=== PATIENT | female | born 1960 | race Caucasian/White ===

== ENCOUNTER 2017-02-26 21:04 | Emergency (ER) | payer BC ==
[~2017-02-26] VITALS: Ht 167.6 cm; Wt 99.8 kg
[~2017-02-26 21:04] MED LIST: ASPI-484 PO; CARV25TA PO; CLOP75TA52 PO; HYDR25TA9 PO; ISOS30TA21 PO; MELO7.5T31 PO; NIFE60TA2 PO; SIMV40TA PO; SPIR25TA3 PO
[2017-02-26] MEDS ORDERED: ZOFRAN ODT SL STA (22:10)
[2017-02-26] MEDS ORDERED: DILAUDID IM STA (22:10)
--- NOTE | 2017-02-26 22:14 | ER.PDOC ---
General Chief Complaint: Lower Back Pain or Injury Stated Complaint: Back pain Time seen by MD: 22:12 Source: patient Exam Limitations: no limitations History of Present Illness Initial Comments Neck and mid back pain for one and half weeks. Denies any fall or injury. Has been to her PCP and Chiropractor without improvement. Severity/Quality: moderate Method of Injury: unknown Associated Symptoms: muscle spasms Prior symptoms/Treatment: Similar symptoms previous, Recenly Seen, Treated by Doctor Allergies: Coded Allergies: amlodipine (Verified Allergy, Unknown, 12/24/15) valsartan (Verified Allergy, Unknown, 12/24/15) Home Meds Reported Medications Carvedilol 25MG (COREG 25MG) 25 Mg Tablet, 1 TAB PO BID, #60 TAB 5 Refills 11/13/15 Aspirin (ASPIR 81) 81 Mg Tablet.dr, 1 TAB PO DAILY, #30 TAB 5 Refills 11/13/15 Simvastatin (ZOCOR) 40 Mg Tablet, 1 TAB PO HS, #90 TAB 1 Refill 11/13/15 Spironolactone (SPIRONOLACTONE) 25 Mg Tablet, 1 TAB PO DAILY, #90 TAB 1 Refill 11/13/15 Nifedipine (PROCARDIA XL) 60 Mg Tab.er.24, 1 TAB PO DAILY, #90 TAB 1 Refill 11/13/15 Clopidogrel Bisulfate (PLAVIX) 75 Mg Tablet, 1 TAB PO DAILY, #90 TAB 1 Refill 11/13/15 Isosorbide Dinitrate (ISOSORBIDE DINITRATE) 30 Mg Tablet, 30 MG PO DAILY, TABLET 11/13/15 Hydrochlorothiazide (HYDROCHLOROTHIAZIDE) 25 Mg Tablet, 1 TAB PO DAILY, #30 TAB 5 Refills 11/13/15 Past Medical History Medical History: CVA/TIA/stroke, hypertension Surgical History: , hysterectomy, knee LMP (females 10-50): hysterectomy Social History Smoking: non-smoker Alcohol Use: occassionally Drug Use: none Review of Systems Constitutional: no symptoms reported Respiratory: no symptoms reported Cardiovascular: no symptoms reported Gastrointestinal: no symptoms reported Musculoskeletal: see HPI All Other Systems: Reviewed and Negative Physical Exam General Appearance: No Apparent Distress, WD/WN Neck: Tender Midline Cardiovascular/Respiratory: Regular Rate, Rhythm, No M/R/G, Normal Peripheral Pulses, No JVD, Normal Breath Sounds, No Respiratory Distress Gastrointestinal: Normal Bowel Sounds, No Organomegaly, No Pulsatile Mass, Non Tender, Soft Back: Vertebral Tenderness (Thoracic spine) Extremities: No Evidence of Injury, Normal Range of Motion Neuro/Psych: Alert, 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/symmetrical Skin: Ecchymosis (right mid back) Results/Orders Results/Orders Administered Medications Medications (Trade) Dose Ordered Sig/Daniel Route PRN Reason Start Time Stop Time Status Last Admin Dose Admin Hydromorphone HCl (Dilaudid) 2 mg STAT STAT IM 02/26/17 22:10 02/26/17 22:11 DC 02/26/17 22:19 Ondansetron HCl (Zofran Odt) 4 mg STAT STAT SL 02/26/17 22:10 02/26/17 22:11 DC 02/26/17 22:19 EKG/XRAY/CT/US CT Comments: Nothing acute on CT C and L spines Departure Time of Disposition: 23:13 Disposition: 01 HOME, SELF-CARE Impression: Primary Impression: Dorsalgia of cervicothoracic region Condition: Stable Referrals: MAXWELL MAY-C (PCP) PRIMARY CARE PROVIDER Additional Instructions: Tylenol #3 Medrol dose pack Methocarbamol F/U with your PCP next week LIBIA STARK MD Feb 26, 2017 22:14
[2017-02-26] MEDS ORDERED: DILAUDID ONE (22:15)
[2017-02-26] MEDS ORDERED: ZOFRAN ODT ONE (22:15)
--- NOTE | 2017-02-26 22:58 | DIREP ---
PROCEDURE: CT SPINE CERVICAL W/0 COMPARISON:None. INDICATIONS:neck pain FINDINGS: ALIGNMENT:Subtle anterolisthesis of C4 on C5 VERTEBRAE:No compression fractures. Narrowing at C5-6 and C6-7 with ventral and dorsal osteophytes at C5-6. Dorsal osteophytes at C6-7 PARASPINAL AREA:Normal. OTHER:No additional findings. CERVICAL DISC LEVELS C2-C3:Mild broad-based disc bulge. No foraminal narrowing C3-C4:No foraminal narrowing C4-C5:Subtle anterolisthesis of C4 on C5. No foraminal narrowing C5-C6:Endplate sclerosis, dorsal osteophytes, subtle narrowing of the left intervertebral foramen C6-C7:Dorsal osteophytes, uncovertebral hypertrophy, subtle left-sided foraminal narrowing C7-T1:Normal. CONCLUSION:Cervical spondylosis C5-6 and C6-7 from degenerative disc and joint disease. Subtle left sided foraminal narrowing. Dictated by: Park Frazier MD on 02/26/2017 at 10:52 PM
--- NOTE | 2017-02-26 23:02 | DIREP ---
PROCEDURE:CT SPINE THORACIC W/O COMPARISON:None. INDICATIONS:back pain no hx trauma TECHNIQUE:Multi-planar CT images were obtained and created without intravenous contrast. FINDINGS: VERTEBRAE: Normal. PARASPINAL AREA:Normal. DISC LEVELS:Subtle Schmorl's nodes at T9-10, superior endplate of T11, and superior endplate of T12 ALIGNMENT:Normal. OTHER:Bilateral nephrolithiasis. No hydronephrosis detected CONCLUSION:No compression fractures. Multilevel Schmorl's nodes. Bilateral nephrolithiasis Dictated by: Park Frazier MD on 02/26/2017 at 10:58 PM
[2017-02-26 23:26] VITALS: BP 127/77
== END 2017-02-26 23:23 | disposition home or self-care (01) ==
LOC: ER 21:04
DX: M54.6 Pain in thoracic spine (principal); M54.2 Cervicalgia; I10 Essential (primary) hypertension; Z79.82 Long term (current) use of aspirin; Z86.73 Personal history of transient ischemic attack (TIA), and cerebral infarction without residual deficits; Z88.8 Allergy status to other drugs, medicaments and biological substances; Z79.899 Other long term (current) drug therapy
CPT/HCPCS: 72125; 72128; 96372; 99284; J1170; Q0162

== ENCOUNTER → 2017-10-15 | Outpatient (CLI) | payer BC ==
[2017-10-15 11:04] LABS: CALCIUM 10.1 mg/dL (8.4-10.5); CARBON DIOXIDE 29.7 mmol/L (20.0-32)
== END | disposition home or self-care (01) ==
LOC: LAB 10:29
PROVIDERS: ATTEND Internal Medicine
DX: E87.6 Hypokalemia (principal)
CPT/HCPCS: 36415; 80048

== ENCOUNTER → 2017-11-25 | Outpatient (CLI) | payer BC ==
--- NOTE | 2017-11-25 11:51 | DIREP ---
PROCEDURE:US ABDOMEN LIMITED(SINGLE ORGAN-QUAD) COMPARISON:[facility], CT, CT ABD/PELVIS W/O, 02/14/2017, 02:17 PM. INDICATIONS:HEREDITARY HEMOCHROMOTOSIS FINDINGS: CBD:0.3 cm GALLBLADDER:0.3 cm LIVER:13.9 cm in length. RIGHT KIDNEY:10.1 x 5.9 x 5.7 cm SPLEEN:14.3 x 5.7 x 10.9 cm PANCREAS:The pancreatic tail is obscured by bowel gas shadowing. LIVER:Normal hepatic parenchymal architecture. Normal directional flow in the portal vein. GALLBLADDER:Normal appearing gallbladder without evidence for gallbladder wall thickening or pericholecystic fluid. BILIARY:There is no biliary ductal dilatation. RIGHT KIDNEY:Normal. No hydronephrosis. SPLEN:Normal. OTHER:Negative. No ascites is identified. CONCLUSION:No evidence for cholelithiasis or cholecystitis. Normal echogenicity of the liver. Dictated by: SHYLA Physician on 11/25/2017 at 11:45 AM ld
== END | disposition home or self-care (01) ==
LOC: RAD 09:51
PROVIDERS: ATTEND Student in an Organized Health Care Education/Training Program
DX: E83.110 Hereditary hemochromatosis (principal); I10 Essential (primary) hypertension; E78.5 Hyperlipidemia, unspecified
CPT/HCPCS: 76705

== ENCOUNTER 2018-10-01 19:05 | Observation (INO) | payer BC ==
[~2018-10-01] VITALS: Ht 167.6 cm; Wt 104.3 kg
[~2018-10-01 19:05] MED LIST changes: -SPIR25TA3 PO; +SPIR25TA5 PO
[2018-10-01 19:39] VITALS: BP 139/81
[2018-10-01] MEDS ORDERED: FLOMAX PO STA (19:53)
[2018-10-01] MEDS ORDERED: TORADOL IV STA (19:53)
[2018-10-01] MEDS ORDERED: NS 1000ML 1,000 ML IV ONE (20:00)
--- NOTE | 2018-10-01 20:02 | ER.PDOC ---
General Chief Complaint: Abdomen Pain Stated Complaint: ABD PAIN Time seen by MD: 19:55 Source: patient Exam Limitations: no limitations History of Present Illness Initial Comments Right sided flank and abdominal pain for 4 days, had multiple kidney stones in the past, some hematuria earlier in the week Timing/Duration: 1 week Severity/Quality: severe, cramping, sharpness Radiation: RLQ, flank (right) Associated Symptoms: denies symptoms Exacerbated by: movements Relieved By: nothing Allergies: Coded Allergies: amlodipine (Verified Allergy, Unknown, 12/24/15) valsartan (Verified Allergy, Unknown, 12/24/15) Home Meds Reported Medications Carvedilol 25MG (COREG 25MG) 25 Mg Tablet, 1 TAB PO BID, #60 TAB 5 Refills 11/13/15 Aspirin (ASPIR 81) 81 Mg Tablet.dr, 1 TAB PO DAILY, #30 TAB 5 Refills 11/13/15 Simvastatin (ZOCOR) 40 Mg Tablet, 1 TAB PO HS, #90 TAB 1 Refill 11/13/15 Spironolactone (SPIRONOLACTONE) 25 Mg Tablet, 1 TAB PO DAILY, #90 TAB 1 Refill 11/13/15 Nifedipine (PROCARDIA XL) 60 Mg Tab.er.24, 1 TAB PO DAILY, #90 TAB 1 Refill 11/13/15 Clopidogrel Bisulfate (PLAVIX) 75 Mg Tablet, 1 TAB PO DAILY, #90 TAB 1 Refill 11/13/15 Isosorbide Dinitrate (ISOSORBIDE DINITRATE) 30 Mg Tablet, 30 MG PO DAILY, TABLET 11/13/15 Hydrochlorothiazide (HYDROCHLOROTHIAZIDE) 25 Mg Tablet, 1 TAB PO DAILY, #30 TAB 5 Refills 11/13/15 Vital Signs First Vital Signs Date Time Temp Pulse Resp B/P (MAP) Pulse Ox O2 Delivery O2 Flow Rate FiO2 10/01/18 19:39 99.2 75 24 93 Room Air 99.2 Last Vital Signs Date Time Temp Pulse Resp B/P (MAP) Pulse Ox O2 Delivery O2 Flow Rate FiO2 10/01/18 19:39 99.2 75 24 93 Room Air 99.2 Past Medical History Medical History: congestive heart failure, hypertension, renal disease Surgical History: , hysterectomy, knee LMP (females 10-50): hysterectomy Social History Smoking: non-smoker Alcohol Use: occassionally Drug Use: none Constitutional: no symptoms reported EENTM: no symptoms reported Respiratory: no symptoms reported Cardiovascular: no symptoms reported Gastrointestinal: see HPI Genitourinary: see HPI Musculoskeletal: no symptoms reported Skin: no symptoms reported Psychiatric/Neurological: no symptoms reported Endocrine: no symptoms reported Hematologic/Lymphatic: no symptoms reported Physical Exam General Appearance: No Apparent Distress, WD/WN HEENT: PERRL/EOMI, Normal ENT Inspection, TMs Normal, Pharynx Normal Neck: Non-Tender, Full Range of Motion, Supple, Normal Inspection Respiratory: chest non-tender, lungs clear, normal breath sounds, no respiratory distress, no accessory muscle use Cardiovascular: Normal Peripheral Pulses, Regular Rate, Rhythm, No Edema, No Gallop, No JVD, No Murmur Gastrointestinal: Normal Bowel Sounds, Soft, Tenderness (R) Back: Normal Inspection, CVA Tenderness (R) Extremities: Normal Range of Motion, Non-Tender, Normal Inspection, No Pedal Edema, No Calf Tenderness, Normal Capillary Refill, Pelvis Stable 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 (10/01/18 19:53) Urinalysis (10/01/18 19:53) Saline Lock (10/01/18 19:53) Ct Abd/Pelvis Wo Iv Contrast (10/01/18 19:53) 0.9 % Sodium Chloride (Ns 1000ml) (10/01/18 20:00) Ketorolac Tromethamine (Toradol) (10/01/18 19:53) Tamsulosin Hcl (Flomax) (10/01/18 19:53) Vital Signs Date Time Temp Pulse Resp B/P (MAP) Pulse Ox O2 Delivery O2 Flow Rate FiO2 10/01/18 19:39 99.2 75 24 93 Room Air 99.2 Course Vitals & review Data Vital Sign - Last 24 Hours 10/01/18 19:39 Temp 99.2 99.2 Pulse 75 Resp 24 Pulse Ox 93 O2 Delivery Room Air O2 Sat by Pulse Oximetry: 93 Departure Time of Disposition: 21:23 Disposition: 09 ADMITTED INPATIENT Impression: Primary Impression: Renal colic Condition: Stable Referrals: MAXWELL MAY (PCP) PRIMARY CARE PROVIDER Duration or Time Spent with Pa: BRIGETTE OVIEDO MD Oct 01, 2018 20:02
[2018-10-01 20:20] LABS: BASOPHIL % 0.3 % (0.0-0.2); EOSINOPHIL # 0.1 10^3/uL (0.0-0.2); EOSINOPHIL % 0.7 % (0.0-5.0); HEMOGLOBIN 15.6 g/dL (12.0-15.0); LYMPHOCYTES % 10.8 % (24.0-44.0); MEAN CELL HGB 30.5 pg (26-34); MEAN CELL HGB CONCENTRATION 34.5 g/dL (33-37); MEAN CORP VOLUME 88.5 fL (78-100); MEAN PLATELET VOLUME 9.9 fL (7.8-11.0); MONOCYTES # 0.9 10^3/uL (0.3-0.8); MONOCYTES % 9.1 % (5.0-12.0); NEUTROPHIL # 7.4 10^3/uL (1.8-7.7); NEUTROPHILS % 78.9 % (41.0-85.0); RED CELL DISTRIBUTION WIDTH 14.9 % (11.5-14.5); WHITE BLOOD CELL 9.4 10^3/uL (4.5-11.0)
[2018-10-01 20:21] LABS: APPEARANCE,URINE CLOUDY (CLEAR); BILIRUBIN,URINE NEGATIVE (NEGATIVE); UA COLOR YELLOW (YELLOW); UROBILINOGEN,URINE NORMAL (NEGATIVE)
[2018-10-01 20:35] LABS: CALCIUM 9.5 mg/dL (8.4-10.5)
--- NOTE | 2018-10-01 20:53 | DIREP ---
PROCEDURE:CT ABDOMEN/PELVIS W/O CONTRAST COMPARISON:[facility], CT, CT ABD/PELVIS W/O, 02/14/2017, 02:17 PM. INDICATIONS:Renal colic TECHNIQUE:Axial images were obtained through the abdomen and pelvis without the administration of IV contrast. Oral contrast was not administered. The examination is supplemented with sagittal and coronal reconstructions. FINDINGS: LOWER CHEST: The lung bases appear clear of focal consolidation. No evidence of pleural effusion. LIVER: A focal lesion is not detected. BILIARY: Suggestion of subtle gallstones. PANCREAS: No lesion, inflammatory changes, fluid collection, ductal dilatation, or atrophy. SPLEEN: No enlargement. No focal lesion. KIDNEYS: There is a 13 x 9 mm calcification in the distal right ureter with severe right hydroureteronephrosis. There are multiple staghorn type calcifications within the left renal collecting system with minimal to mild hydronephrosis. ADRENALS: No mass or enlargement. AORTA/VASCULAR: No aneurysm or dissection. RETROPERITONEUM: No mass or adenopathy. BOWEL/MESENTERY: Limitations due to unopacified bowel. The appendix is visualized and has a normal appearance. No small bowel dilatation or bowel wall thickening. No mesenteric inflammatory changes. There is no free air or free fluid. ABDOMINAL WALL: No mass or hernia. PELVIS: No visible mass. No adenopathy. Evaluation of the urinary bladder is limited due to an empty bladder. No visible focal bladder wall thickening or intraluminal calculus. BONES: No bony lesion or acute fracture. OTHER: Negative. CONCLUSION: 1. There is a 13 x 9 mm calcification in the distal right ureter with severe right hydroureteronephrosis. 2. There are multiple staghorn type calcifications within the left renal collecting system with minimal to mild hydronephrosis. 3. Suggestion of subtle gallstones. Dictated by: Bart Duke M.D. On 10/01/2018 at 08:46 PM
[2018-10-01] MEDS ORDERED: NS 1000ML 1,000 ML ONE (21:14)
[2018-10-01] MEDS ORDERED: FLOMAX ONE (21:14)
[2018-10-01] MEDS ORDERED: TORADOL ONE (21:14)
--- NOTE | 2018-10-01 21:18 | NUR ---
DR. DR. ESCALANTE ON THE PHONE WITH DR. KINCAID
[2018-10-01] MEDS ORDERED: ROCEPHIN 1,000 MG in NS 100ML 100 ML IV ONE (21:30)
[2018-10-01] MEDS ORDERED: NS 100ML 100 ML IV ONE ×2 (21:41→21:48)
[2018-10-01] MEDS ORDERED: ROCEPHIN ONE ×2 (21:42→21:48)
--- NOTE | 2018-10-01 21:58 | PCM.EKG ---
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
--- NOTE | 2018-10-01 22:00 | NUR ---
IV Patient states that IV is hurting. Went and checked IV, IV had infiltrated. IV fluids stopped at this time. IV removed. Tip intact. Olaced cotton ball over IV site, secured with coban. No brusing noted at this time.
[2018-10-01 22:22] VITALS: BP 119/69
[2018-10-01 23:00] VITALS: BP 130/78
[2018-10-01] MEDS ORDERED: FURO-80 PO (23:28)
[2018-10-01] MEDS ORDERED: POTA10TA6 PO (23:28)
[2018-10-01] MEDS ORDERED: LACTATED RINGERS 1,000 ML IV SCH (23:30)
[2018-10-01] MEDS: DEMEROL IV PRN (23:58)
[2018-10-02] VITALS (7 sets, daily range): BP systolic 93–121; BP diastolic 54–75
[2018-10-02] MEDS: ZOFRAN IV PRN ×2 (00:09→05:17)
[2018-10-02] MEDS ORDERED: TORADOL IV PRN (02:00)
[2018-10-02] MEDS: DEMEROL IV PRN (05:17)
[2018-10-02 05:33] LABS: HEMOGLOBIN 13.9 g/dL (12.0-15.0); MEAN CELL HGB 30.8 pg (26-34); MEAN CELL HGB CONCENTRATION 34.2 g/dL (33-37); MEAN CORP VOLUME 90.2 fL (78-100); MEAN PLATELET VOLUME 10.5 fL (7.8-11.0); WHITE BLOOD CELL 8.1 10^3/uL (4.5-11.0)
--- NOTE | 2018-10-02 06:35 | NUR ---
REPORT REPORT RECEIVED FROM FATIMAH JOEL RN ASSUMED CARE OF PT
[2018-10-02] MEDS ORDERED: ZOFRAN ONE (09:18)
[2018-10-02] MEDS ORDERED: SUBLIMAZE ONE (09:18)
[2018-10-02] MEDS ORDERED: DECADRON ONE (09:18)
[2018-10-02] MEDS ORDERED: LIDOCAINE 2% VIAL ONE (09:18)
[2018-10-02] MEDS ORDERED: LACTATED RINGERS 1,000 ML ONE (09:18)
[2018-10-02] MEDS ORDERED: DILAUDID ONE (09:18)
[2018-10-02] MEDS ORDERED: DIPRIVAN IV ONE (09:19)
--- NOTE | 2018-10-02 09:31 | NUR ---
STATUS PT OFF OF UNIT VIA BED WITH OR CREW
[2018-10-02] MEDS ORDERED: SODIUM CHLORIDE IR ONE (09:38)
[2018-10-02] MEDS ORDERED: NS 3000ML IRR IR ONE (09:38)
[2018-10-02] MEDS ORDERED: LEVAQUIN 100 ML IV ONE ×2 (09:54→11:00)
[2018-10-02] MEDS ORDERED: LACTATED RINGERS 1,000 ML IV SCH (10:30)
[2018-10-02] MEDS ORDERED: NORCO 7.5MG PO PRN (10:30)
--- NOTE | 2018-10-02 10:50 | NUR ---
D/C PT D/C INSTRUCTIONS GIVEN TO PT ON RESUME PREVIOUS LEVEL OF ACTIVITY, DIET, AND PRESCRIBED MEDICATIONS CIPRO AND TRAMADOL. PT VERBALIZED UNDERSTANDING. NO S/S OF DISTRESS NOTED. PT IV D/C PER ASEPTIC TECHNIQUE. NO REDNESS, TENDERNESS, OR SWELLING NOTED TO SITE. PT OFF OF UNIT VIA W/C TO GO HOME IN PRIVATE VEHICLE. RELINQUISHED CARE OF PT. Addendum: 10/02/18 at 1650 by IAN Potter MS, RN WRONG TIME CHARTED. PT D/C'D AT [id number]
--- NOTE | 2018-10-02 10:50 | NUR ---
ARRIVAL PT ARRIVED BACK TO FLOOR VIA BED. NO S/S OF DISTRESS NOTED. SPECIAL V/S STARTED. WILL CONT TO MONITOR. REPORT RECEIVED FROM PASTORA SANDOVAL RN.
--- NOTE | 2018-10-02 10:54 | OPH ---
DATE OF SURGERY: 10/02/2018 PREOPERATIVE DIAGNOSIS: Large calculus, right lower ureter with right hydronephrosis. FINAL DIAGNOSIS: Large calculus, right lower ureter with right hydronephrosis. PROCEDURES: Cystoscopy, right retrograde, right ureteral stone manipulation and insertion of a double-J right ureteral stent. DESCRIPTION OF PROCEDURE: The patient was brought to the cystoscopy room and was put in supine position on the cystoscopy table. After the patient was given this satisfactory and adequate LMA general anesthesia, the patient was placed in the lithotomy position. The genitalia was then prepped and draped aseptically in the usual manner. First, a 23-Nigerian cystoscope was inserted per urethra up to the bladder. With the use of the right angle lens, the bladder was visualized. There was no evidence of tumor, no calculi, no ulcerations seen. Both ureteral orifices were normal. Initial right retrograde was done with inserting a 7-Nigerian ureteral catheter in the right orifice and injected by a dye and there is an obstruction noted in the right lower ureter with a large calculus with hydroureter. A right ureteral stone manipulation was then performed after insertion of a double-J 6-Nigerian right ureteral stent and inserted from the right ureteral orifice all the way to the kidney. After this was done, all the guidewire was removed. Bladder was emptied with fluid. Instrument was removed and the procedure was terminated. The patient tolerated the procedure well. The patient was awakened, was transferred to the recovery room in stable condition. Teofilo Hung MD DR: RENATA/melania JOB# [id number]
[2018-10-02] MEDS ORDERED: DILAUDID IV PRN (11:00)
[2018-10-02] MEDS ORDERED: ZOFRAN IV PRN (11:00)
--- NOTE | 2018-10-02 11:42 | DIREP ---
PROCEDURE:XRAY FLUOROSCOPY COMPARISON:None. INDICATIONS:cysto, retrograde with possible stent insertion, rt kidney stone FINDINGS:Fluoroscopic spot films were obtained during retrograde pyelography. FLUORO TIME (min): 98.9 NUMBER OF SPOT FILMS: 5 RIGHT URINARY TRACT: Minimal opacification of the lower ureter. No obvious ureteral filling defects. Placement of right ureteral stent. LEFT URINARY TRACT: Non-opacified. CONCLUSION: 1. Fluoroscopic spot films were obtained during retrograde pyelography. Please refer to the procedure note. Dictated by: Bart Duke M.D. on 10/02/2018 at 11:37 AM
--- NOTE | 2018-10-02 15:15 | NUR ---
D/C PT D/C INSTRUCTIONS GIVEN TO PT ON RESUME PREVIOUS LEVEL OF ACTIVITY, DIET, AND PRESCRIBED MEDICATIONS CIPRO AND TRAMADOL. PT VERBALIZED UNDERSTANDING. NO S/S OF DISTRESS NOTED. PT IV D/C PER ASEPTIC TECHNIQUE. NO REDNESS, TENDERNESS, OR SWELLING NOTED TO SITE. PT OFF OF UNIT VIA W/C TO GO HOME IN PRIVATE VEHICLE. RELINQUISHED CARE OF PT.
== END 2018-10-02 15:26 | disposition home or self-care (01) ==
LOC: ER 19:05 → MS 21:24 → EDPENDDISDT 10-02 15:15 → EDPENDDISTM 10-02 15:15
PROVIDERS: ADMIT Urology; ATTEND Urology
DX: N13.2 Hydronephrosis with renal and ureteral calculous obstruction (principal); Z88.8 Allergy status to other drugs, medicaments and biological substances; I11.0 Hypertensive heart disease with heart failure; I50.9 Heart failure, unspecified; Z90.710 Acquired absence of both cervix and uterus; Z87.448 Personal history of other diseases of urinary system
CPT/HCPCS: 36415 ×2; 52330; 52332; 74176; 74420; 76000; 80053; 81000; 85025; 85027; 85610; 85730; 87077; 87086; 87186; 93005; 96365; 96375 ×2; 96376; 99284; A4217 ×2; G0378 ×18; J0696 ×3; J1100; J1170; J1885; J1956; J2001; J2175 ×2; J2405 ×3; J3010; J3490; J7030; J7050 ×3; J7120 ×2; Q9966; C1758; C1769; C2617

== ENCOUNTER 2018-10-14 06:45 | Day surgery (SDC) | payer BC ==
[2018-10-13 14:03] VITALS: BP 117/75
[2018-10-13 15:14] LABS: BASOPHIL # 0.1 10^3/uL (0.0-0.1); BASOPHIL % 1.1 % (0.0-0.2); EOSINOPHIL # 0.2 10^3/uL (0.0-0.2); EOSINOPHIL % 3.4 % (0.0-5.0); HEMOGLOBIN 15.4 g/dL (12.0-15.0); LYMPHOCYTES # 1.6 10^3/uL (1.0-4.8); LYMPHOCYTES % 30.5 % (24.0-44.0); MEAN CELL HGB 30.1 pg (26-34); MEAN CELL HGB CONCENTRATION 34.1 g/dL (33-37); MEAN CORP VOLUME 88.1 fL (78-100); MEAN PLATELET VOLUME 10.7 fL (7.8-11.0); MONOCYTES # 0.6 10^3/uL (0.3-0.8); MONOCYTES % 10.3 % (5.0-12.0); NEUTROPHIL # 2.9 10^3/uL (1.8-7.7); NEUTROPHILS % 54.3 % (41.0-85.0); RED CELL DISTRIBUTION WIDTH 15.1 % (11.5-14.5); WHITE BLOOD CELL 5.4 10^3/uL (4.5-11.0)
[~2018-10-14] VITALS: Ht 167.6 cm; Wt 99.8 kg
[2018-10-14] VITALS (10 sets, daily range): BP systolic 103–144; BP diastolic 63–84
[~2018-10-14 06:45] MED LIST changes: +DECADRON ONE; +DIPRIVAN IV ONE; +FURO-80 PO; +LACTATED RINGERS 1,000 ML ONE; +LASIX ONE; +LEVAQUIN 100 ML IV ONE; +LIDOCAINE 2% VIAL ONE; +POTA10TA6 PO; +POTA20TA14 PO; +SUBLIMAZE ONE; +TORADOL ONE; +TRAM50TA PO; +VERSED ONE; +ZOFRAN ONE
[2018-10-14] MEDS ORDERED: LASIX IV ONE (07:00)
[2018-10-14] MEDS ORDERED: LACTATED RINGERS 1,000 ML IV SCH ×2 (07:00→09:30)
[2018-10-14] MEDS ORDERED: CIPR500T86 PO (09:20)
--- NOTE | 2018-10-14 09:21 | OPH ---
DATE OF SURGERY: 10/14/2018 PREOPERATIVE DIAGNOSIS: Large calculus in right lower ureter with an indwelling ureteral stent. POSTOPERATIVE DIAGNOSIS: Large calculus in right lower ureter with an indwelling ureteral stent. PROCEDURE: Right ESWL. DESCRIPTION OF PROCEDURE: The patient was brought to the lithotripsy room, was put in supine position on the lithotripsy table. A preoperative KUB was initially performed. This revealed a large calculus in the right lower ureter with an indwelling stent. After the patient was given an LMA general anesthesia and after localization of the stone with the use of a fluoroscopy and an ultrasound, a right ESWL was then performed using a Dornier Compact Delta II Lithotripter. A total of 2500 shockwaves were delivered to the stones due to the large calculus in the lower ureter under ultrasound guidance and under fluoroscopy. After the stone was fragmented as noted in the ultrasound, the procedure was terminated. The patient was awakened, was transferred to the recovery room in stable condition. Teofilo Hung MD DR: RENATA/melania JOB# [id number]
[2018-10-14] MEDS ORDERED: NORCO 7.5MG PO PRN (09:30)
[2018-10-14] MEDS ORDERED: LASIX IV SCH (09:30)
--- NOTE | 2018-10-14 10:27 | DIREP ---
PROCEDURE:XRAY ABDOMEN SINGLE VW COMPARISON:None. INDICATIONS:stent FINDINGS: BOWEL GAS PATTERN:Nonobstructive. Fecal residue within the proximal colon. CALCIFICATIONS:Pelvic phleboliths. LUNG BASES:Not imaged. BONES:Normal. OTHER:Double-J ureteral stent overlies the right natalia abdomen and pelvis. CONCLUSION: 1. Right double-J ureteral stent. 2. Nonobstructive bowel gas pattern. Dictated by: Navdeep Dorsey MD on 10/14/2018 at 10:25 AM
== END 2018-10-14 10:45 | disposition home or self-care (01) ==
LOC: SDC 06:45
PROVIDERS: ATTEND Urology
DX: N20.1 Calculus of ureter (principal); I11.0 Hypertensive heart disease with heart failure; I50.9 Heart failure, unspecified; I25.10 Atherosclerotic heart disease of native coronary artery without angina pectoris; G47.33 Obstructive sleep apnea (adult) (pediatric); E66.9 Obesity, unspecified; J44.9 Chronic obstructive pulmonary disease, unspecified; E78.5 Hyperlipidemia, unspecified; Z88.8 Allergy status to other drugs, medicaments and biological substances; Z86.73 Personal history of transient ischemic attack (TIA), and cerebral infarction without residual deficits; Z90.710 Acquired absence of both cervix and uterus; Z98.890 Other specified postprocedural states; Z79.82 Long term (current) use of aspirin; Z79.899 Other long term (current) drug therapy; Z79.2 Long term (current) use of antibiotics; Z98.51 Tubal ligation status; Z68.35 Body mass index [BMI] 35.0-35.9, adult; Z86.718 Personal history of other venous thrombosis and embolism; Z83.3 Family history of diabetes mellitus; Z82.3 Family history of stroke; Z82.49 Family history of ischemic heart disease and other diseases of the circulatory system
CPT/HCPCS: 36415; 50590; 74018; 85025; 85610; 85730; J1100; J1885; J1956; J2001; J2250; J2405; J3010; J3490; J7120; J1940

== ENCOUNTER 2018-10-19 06:55 | Day surgery (SDC) | payer BC ==
[~2018-10-19] VITALS: Ht 167.6 cm; Wt 99.8 kg
[2018-10-19] VITALS (9 sets, daily range): BP systolic 110–138; BP diastolic 71–91
[~2018-10-19 06:55] MED LIST changes: +CIPR500T86 PO; -DECADRON ONE; -DIPRIVAN IV ONE; -LASIX ONE; -LIDOCAINE 2% VIAL ONE; -SUBLIMAZE ONE; -TORADOL ONE; -VERSED ONE; -ZOFRAN ONE
[2018-10-19] MEDS ORDERED: LACTATED RINGERS 1,000 ML IV SCH ×2 (07:00→09:00)
[2018-10-19] MEDS ORDERED: SUBLIMAZE ONE (07:06)
[2018-10-19] MEDS ORDERED: DECADRON ONE (07:06)
[2018-10-19] MEDS ORDERED: TORADOL ONE (07:06)
[2018-10-19] MEDS ORDERED: ZOFRAN ONE (07:06)
[2018-10-19] MEDS ORDERED: DIPRIVAN IV ONE (07:07)
[2018-10-19] MEDS ORDERED: NS 3000ML IRR IR ONE (07:25)
[2018-10-19] MEDS ORDERED: SODIUM CHLORIDE IR ONE (07:25)
[2018-10-19] MEDS ORDERED: AMINOACETIC ACID IR ONE (07:27)
[2018-10-19] MEDS ORDERED: DILAUDID IV PRN (09:00)
[2018-10-19] MEDS ORDERED: ZOFRAN IV PRN (09:00)
[2018-10-19] MEDS ORDERED: SUBLIMAZE IV PRN (09:00)
[2018-10-19] MEDS ORDERED: LACTATED RINGERS 1,000 ML SCH (09:00)
[2018-10-19] MEDS ORDERED: NORCO 7.5MG PO PRN (09:00)
--- NOTE | 2018-10-19 09:02 | DIREP ---
PROCEDURE:XRAY FLUOROSCOPY COMPARISON:[facility], , XRAY FLUOROSCOPY, 10/02/2018, 08:22 AM. INDICATIONS:CYSTO,LASER, STENT REMOVAL 52.10mgy 118.7 secs fluro 12 films TECHNIQUE:12 intraoperative images of the abdomen were performed in surgery. Fluoroscopy time performed was 118.7 seconds. FINDINGS:Numerous intraoperative views of the abdomen demonstrate interval removal and replacement of a right ureteral stent in good position. The right renal collecting system and right ureter were not opacified with contrast. CONCLUSION:Multiple intraoperative views demonstrate interval removal and replacement of a right ureteral stent in good position. Dictated by: Tj Billy M.D. on 10/19/2018 at 08:58 AM
--- NOTE | 2018-10-19 10:11 | OPH ---
DATE OF SURGERY: 10/19/2018 PREOPERATIVE DIAGNOSIS: Calculus, right lower ureter with indwelling stent. FINAL DIAGNOSIS: Calculus, right lower ureter with indwelling stent. PROCEDURES: Cystoscopy, removal of right ureteral stent, right ureteroscopy with extraction of multiple stones in the right lower ureter with reinsertion of stent. DESCRIPTION OF PROCEDURE: The patient was brought to the cystoscopy room and was put in supine position on the cystoscopy table. After the patient was given a satisfactory and adequate LMA general anesthesia, the patient was placed in the lithotomy position. The genitalia was then prepped and draped aseptically in the usual manner. First, a 23-Nigerien cystoscope was inserted per urethra up to the bladder. With the use of the right angle lens, the bladder was visualized. There was some congestion noted. No tumor, no calculi seen. The right ureteral stent was removed and replaced with a Glidewire. After this was done, the guidewire was dilated and then the cystoscope was removed and a 7-Nigerien semirigid ureteroscope was inserted per urethra up to the right ureteral orifice all the way to the mid ureter and the area of the lower ureter. There were multiple stones, which were blasted during the shock wave lithotripsy last week. Multiple stone was then extracted from the basket stone extraction was then performed. After this was done, this was so much excessive swelling in the right lower ureter and it was then decided to reinsert a double J right ureteral stent at the end of the procedure. After that, the cystoscope was reinserted. The ureteroscope was removed and the cystoscope was reinserted to the bladder and the bladder was emptied with water. Procedure was terminated. The patient was awakened, was transferred to the recovery room in stable condition. Teofilo Hung MD DR: RENATA/emlania JOB# [id number]
== END 2018-10-19 09:50 | disposition home or self-care (01) ==
LOC: SDC 06:55
PROVIDERS: ATTEND Urology
DX: N20.1 Calculus of ureter (principal); G47.33 Obstructive sleep apnea (adult) (pediatric); E66.9 Obesity, unspecified; I25.10 Atherosclerotic heart disease of native coronary artery without angina pectoris; I11.0 Hypertensive heart disease with heart failure; I50.9 Heart failure, unspecified; Z88.8 Allergy status to other drugs, medicaments and biological substances; Z68.35 Body mass index [BMI] 35.0-35.9, adult; Z86.73 Personal history of transient ischemic attack (TIA), and cerebral infarction without residual deficits; Z79.899 Other long term (current) drug therapy; Z90.710 Acquired absence of both cervix and uterus; Z98.51 Tubal ligation status; Z79.1 Long term (current) use of non-steroidal anti-inflammatories (NSAID); Z79.2 Long term (current) use of antibiotics; Z87.891 Personal history of nicotine dependence; Z79.82 Long term (current) use of aspirin; Z82.49 Family history of ischemic heart disease and other diseases of the circulatory system; Z83.3 Family history of diabetes mellitus; Z82.3 Family history of stroke
CPT/HCPCS: 36415; 52332; 52352; 82360; A4217 ×2; J1100; J1885; J1956; J2405; J3010; J3490; J7120 ×2; 76000; C1758; C1769; C2617

== ENCOUNTER 2018-10-26 06:44 | Day surgery (SDC) | payer BC ==
[2018-10-26] VITALS (9 sets, daily range): BP systolic 99–125; BP diastolic 65–76
[~2018-10-26] VITALS: Ht 167.6 cm; Wt 99.8 kg
[~2018-10-26 06:44] MED LIST changes: +LACTATED RINGERS 1,000 ML IV SCH
[2018-10-26] MEDS ORDERED: ZOFRAN ONE (06:58)
[2018-10-26] MEDS ORDERED: DECADRON ONE (06:58)
[2018-10-26] MEDS ORDERED: LIDOCAINE 2% VIAL ONE (06:58)
[2018-10-26] MEDS ORDERED: TORADOL ONE (06:58)
[2018-10-26] MEDS ORDERED: SUBLIMAZE ONE (06:59)
[2018-10-26] MEDS ORDERED: DIPRIVAN IV ONE (06:59)
[2018-10-26] MEDS ORDERED: SODIUM CHLORIDE IR ONE (07:16)
[2018-10-26] MEDS ORDERED: NS 3000ML IRR IR ONE (07:16)
[2018-10-26] MEDS ORDERED: NORCO 7.5MG PO PRN (08:30)
[2018-10-26] MEDS ORDERED: LACTATED RINGERS 1,000 ML IV SCH (08:30)
[2018-10-26] MEDS ORDERED: ZOFRAN IV PRN (09:00)
[2018-10-26] MEDS ORDERED: SUBLIMAZE IV PRN (09:00)
--- NOTE | 2018-10-26 09:55 | OPH ---
DATE OF SURGERY: 10/26/2018 PREOPERATIVE DIAGNOSIS: Calculus in the right lower ureter post-ESWL and post-basket stone extraction with the presence of indwelling right ureteral stent. FINAL DIAGNOSIS: Presence of indwelling ureteral stent post-extraction of right ureteral stone. DESCRIPTION OF PROCEDURE: The patient was put in supine position on the cystoscopy table. After giving satisfactory and adequate LMA general anesthesia, the patient was then placed in lithotomy position. The genitalia was then prepped and draped aseptically in the usual manner. First, a 23-Kiswahili cystoscope was inserted per urethra up to the bladder, with the use of the right angle lens, the bladder was visualized. There was presence of stent in the right ureteral orifice and this was removed and replaced with a Glidewire. After this was done, the cystoscope was removed and a semirigid ureteroscope was inserted per urethra up to the right ureteral orifice all the way to the upper ureter and there is no more evidence of residual stone noted in the right lower ureter. After this was done, the guidewire was removed including the ureteroscope and the cystoscope was then reinserted to the bladder to empty the bladder with fluid. After this was done, instrument was removed. The patient was then awakened, was transferred to the recovery room in stable condition. Teofilo Hung MD DR: RENATA/melania JOB# [id number]
--- NOTE | 2018-10-26 11:21 | DIREP ---
PROCEDURE:XRAY FLUOROSCOPY COMPARISON:[facility], , XRAY FLUOROSCOPY, 10/19/2018, 06:06 AM. [facility], , XRAY FLUOROSCOPY, 10/02/2018, 08:22 AM. INDICATIONS:cysto, with stent removal 6 films 20.76mgy 44.8 secs fluro TECHNIQUE:Fluoroscopic assistance right ureteral stent removal. FINDINGS:Images depict removal of a right ureteral stent. CONCLUSION:Right ureteral stent removal. Dictated by: Jordin Gomez M.D. on 10/26/2018 at 11:18 AM
== END 2018-10-26 09:30 | disposition home or self-care (01) ==
LOC: SDC 06:44
PROVIDERS: ATTEND Urology
DX: N20.1 Calculus of ureter (principal); I11.0 Hypertensive heart disease with heart failure; I50.9 Heart failure, unspecified; J44.9 Chronic obstructive pulmonary disease, unspecified; E78.5 Hyperlipidemia, unspecified; I25.10 Atherosclerotic heart disease of native coronary artery without angina pectoris; E66.9 Obesity, unspecified; Z68.35 Body mass index [BMI] 35.0-35.9, adult; G47.33 Obstructive sleep apnea (adult) (pediatric); Z88.8 Allergy status to other drugs, medicaments and biological substances; Z79.899 Other long term (current) drug therapy; Z79.82 Long term (current) use of aspirin; Z87.891 Personal history of nicotine dependence; Z86.73 Personal history of transient ischemic attack (TIA), and cerebral infarction without residual deficits; Z83.3 Family history of diabetes mellitus; Z82.49 Family history of ischemic heart disease and other diseases of the circulatory system; Z90.710 Acquired absence of both cervix and uterus; Z98.890 Other specified postprocedural states
CPT/HCPCS: 52310; A4217 ×2; J1100; J1885; J1956; J2001; J2405; J3010; J3490; J7120; 76000; C1758

== ENCOUNTER → 2020-12-18 | Outpatient (CLI) | payer BC ==
[~2020-12-18] MED LIST changes: -ASPI-484 PO; +ASPI-485 PO; -LACTATED RINGERS 1,000 ML IV SCH; -LACTATED RINGERS 1,000 ML ONE; -LEVAQUIN 100 ML IV ONE
[2020-12-18 11:33] LABS: MEAN CORP HGB 30.2 pg (26-34); RED CELL DISTRIBUTION WIDTH 13.2 % (11.5-14.5)
--- NOTE | 2020-12-18 11:45 | PCM.EKG ---
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
[2020-12-18 12:03] LABS: CALCIUM 9.7 mg/dL (8.4-10.5); CARBON DIOXIDE 26.2 mmol/L (20.0-32)
== END | disposition home or self-care (01) ==
LOC: RT 11:18
DX: M76.62 Achilles tendinitis, left leg (principal); M92.62 Juvenile osteochondrosis of tarsus, left ankle
CPT/HCPCS: 36415; 80053; 85027; 93005